=== PATIENT | female | born 1950 ===

== ENCOUNTER 2024-03-14 11:30 | Day surgery (SDC) | payer OTHER ==
[2024-03-06 08:54] LABS: Absolute Eosinophils 0.5 K/uL (0-0.5); Absolute Lymphocytes (CBC) 2.4 K/uL (0.7-4.9); Absolute Monocytes 0.4 K/uL (0.1-1.3); Basophils % 0.7 % (0-1.3); Eosinophils % 7.2 % (0-4.4); Hematocrit 39.4 % (36.0-45.0); Hemoglobin 13.5 g/dL (12.0-15.0); Lymphocytes % 37.5 % (15.3-44.8); MCH 31.3 pg (27.0-35.0); MCHC 34.3 g/dL (32.0-36.0); MCV 91.3 fL (80-100); MPV 8.3 fL (7.6-11.3); Monocytes % 6.8 % (3.3-12.3); Neutrophils % 47.8 % (41.7-73.7); Platelets 327 thou/uL (152-406); RBC Red Blood Cell Count 4.32 M/uL (3.86-4.86); Red Cell Distribution Width 13.1 % (12.1-15.2)
--- NOTE | 2024-03-06 08:54 | RAD REPORT ---
EXAMINATION: TWO VIEW CHEST XR CLINICAL INDICATION: Pre op pending heart catheterization TECHNIQUE: 2 views of the chest was performed. COMPARISON: No prior exam. FINDINGS: The lungs are well inflated and clear. The heart is normal in size. No displaced fractures evident. C alcified right paratracheal stripe lymph nodes. IMPRESSION: No acute or significant abnormalities.
[2024-03-06 09:10] LABS: Anion Gap 8.5 mEq/L (5.0-15.0); Potassium 4.5 mEq/L (3.5-5.1)
[2024-03-06 09:12] LABS: PT Prothrombin Time 11.6 SECONDS (9.4-12.5); PTT, Activated Partial Thromb 38.9 SECONDS (24.3-36.9); Protime INR 1.04
--- NOTE | 2024-03-06 12:48 | EKG ---
Test Date: 2024-03-06 Test Time: 08:25:41 Automatic [employer] Machine Tender: NATALIE MEASUREMENT RESULTS: Intervals: Rate: 56 NH: 144 QRSD: 136 QT: 424 QTc: 409 [place]: P: 66 NH: 144 QRS: -14 T: 208 INTERPRETIVE STATEMENTS: Sinus bradycardia Left bundle branch block Abnormal ECG No previous ECG available for comparison Electronically Signed On 03-06-24 12:47:51 CDT by Carlos Delgado
[2024-03-14] MEDS ORDERED: NA CHLORIDE 0.9% 500 ML ONE (11:38)
[2024-03-14] MEDS ORDERED: HEPA 1000U/500MLS 2,000 UNIT/1,000 ML BAG IV ONE (11:48)
[2024-03-14] MEDS ORDERED: HEPARIN 10,000 UNIT/10 ML VIAL IV ONE (11:48)
[2024-03-14] MEDS ORDERED: CLOPIDOGREL 75 MG TABLET ONE (11:49)
[2024-03-14] MEDS ORDERED: VERAPAMIL HCL 10 MG/4 ML VIAL IV ONE (11:49)
[2024-03-14] MEDS ORDERED: MIDAZOLAM HCL 2 MG/2 ML INJ ONE (11:49)
[2024-03-14] MEDS ORDERED: HEPARIN 5000 UNIT/ML 1 ML VIAL ONE (11:49)
[2024-03-14] MEDS ORDERED: TICAGRELOR 90 MG TABLET PO ONE (11:49)
[2024-03-14] MEDS ORDERED: ATROPINE SULF 1 MG/10 ML SYR IV ONE (11:49)
[2024-03-14] MEDS ORDERED: LIDOCAINE 1% 20 ML MDV ONE (11:49)
[2024-03-14] MEDS ORDERED: ASPIRIN 325 MG TAB ONE (11:50)
[2024-03-14] MEDS ORDERED: FENTANYL CITR 100 MCG/2 ML ONE (11:50)
[2024-03-14] MEDS ORDERED: REGADENOSON 0.4 MG/5 ML SYR IV ONE (13:03)
[2024-03-14 13:49] VITALS: TEMP 97.8
[2024-03-14 16:41] VITALS: BP 146/89; O2SAT 95
--- NOTE | 2024-03-15 00:31 | OP ---
Date of Procedure: 03/14/2024 Surgeon: JOSEPH HALE Procedures Performed: 1.Selective coronary angiogram. 2.Left heart catheterization. Indication: Chest pain with abnormal stress test. Access: Right radial artery 6-[place]an, closed with TR band. Complications: None. Bleeding: Less than 50 mL. Anesthesia: Total sedation time was 50 minutes. Used fentanyl and Versed. Description Of Procedure: After risks, benefits, and alternatives were explained, patient agreed to procedure and signed informed consent. The patient was brought into cardiac catheterization laborato , prepped and draped in sterile fashion. Then, I accessed right radial artery using pediatric micr opuncture kit, placed 6-[place] Slender sheath. Took 5-[place] 4 catheter into the aortic root o jose a J-wire, engaged left main, took standard views and then the RCA and took standard views and the catheter was pushed over the wire into the LV, measured the LVEDP. Pullback did not record any grad ient. Then, removed the catheter and the sheath, placed TR band with good hemostasis. Findings: 1.Left main: Large and normal. 2.LAD: Large vessel. Proximal segment is normal. In the mid segment, there is a long diffuse 40% to 50% stenosis. Diagonal branches are normal. Rest of LAD is normal. 3.Left circumflex is normal, but small. 4.RCA: Large and dominant and normal. 5.Normal LVEDP at 6 mmHg. Conclusion: Moderate coronary artery disease. Recommendation: Medical management. /[email or web address] Voice ID: [id number] Report ID: [id number]
== END 2024-03-14 16:30 | disposition home or self-care (01) ==
LOC: PRE 11:30 → CCL 16:30
PROVIDERS: ATTEND Internal Medicine
DX: I25.10 Atherosclerotic heart disease of native coronary artery without angina pectoris (principal); I44.7 Left bundle-branch block, unspecified; I10 Essential (primary) hypertension; E11.9 Type 2 diabetes mellitus without complications; Z79.82 Long term (current) use of aspirin; Z79.84 Long term (current) use of oral hypoglycemic drugs; Z79.899 Other long term (current) drug therapy; Z88.8 Allergy status to other drugs, medicaments and biological substances; Z82.49 Family history of ischemic heart disease and other diseases of the circulatory system
CPT/HCPCS: 93005; 85025; 80048; 36415; 85610; 82947; 85730; 71046; 93458; 76937; C1893; Q9966; J1644; J2003; J2250; J3010; J7040; 99152; 99153; J0461; J2785